=== PATIENT | female | born 1995 | race Caucasian/White ===

== ENCOUNTER 2018-07-04 20:07 | Emergency (ER) | payer SELFPAY ==
[2018-07-04 20:07] VITALS: BMI 28.6
[2018-07-04 20:28] VITALS: BP 105/70; PULSE 78; RESP 16; TEMP 98.2; O2SAT 97
== END 2018-07-05 00:15 | disposition left against medical advice (07) ==
LOC: H.ER 20:07
DX: Z02.89 Encounter for other administrative examinations (principal)